=== PATIENT | male | born 1965 | race Caucasian/White ===

== ENCOUNTER 2020-01-29 17:55 | Emergency (ER) | payer OTHER, SELFPAY ==
[2020-01-29 18:08] VITALS: BP 147/93; PULSE 75; RESP 16; TEMP 36.9; O2SAT 100
--- NOTE | 2020-01-29 18:25 | ED.GENADULT ---
HPI - General Adult General Chief complaint: Skin/Abscess/Foreign Body Stated complaint: Rash Time Seen by Provider: 01/29/20 18:25 Source: patient Mode of arrival: ambulatory Limitations: no limitations History of Present Illness HPI narrative: 55-year-old male patient presents to the [facility] with complaints of a rash to bilateral hands and wrists x4 days. Patient states it is itchy. Denies rash anywhere else on the body. Patient denies coming into contact with anything that he is allergic to that he can remember. Patient states that about a month ago his and him were working out in the yard and states that his did get some red bumps all over her after working out in the yard but he states he never got anything except for he is concerned that he might of gotten some from his dog since his dog does walk out around the yard often and he pets the dog often. Patient states he does have normally extremely dry skin. Patient states he has been using calamine lotion which has helped with the itching. Related Data Allergies Allergy/AdvReac Type Severity Reaction Status Date / Time No Known Allergies Allergy Unverified 09/18/18 11:23 Review of Systems Review of Systems: Narrative: CONSTITUTIONAL: Denies fever, chills, or sweats. EYES: Denies visual changes, redness, or discharge. ENT: Denies rhinorrhea, congestion, sore throat, or otalgia. CARDIOVASCULAR: Denies chest pain, palpitations, or edema. RESPIRATORY: Denies cough or dyspnea. GASTROINTESTINAL: Denies abdominal pain, nausea, vomiting, or diarrhea. GENITOURINARY: Denies dysuria or hematuria. SKIN: Positive rash with itching to bilateral wrists and hands. MUSCULOSKELETAL: Denies back pain, joint pain, or myalgia. NEUROLOGIC: Denies headache, numbness, or weakness. PSYCHIATRIC: Denies anxiety or depression. PMFSH Comments At the time of my signature I agree with nursing past medical history, surgical, social, and family history. There is no relevant family history pertinent to the presenting complaint. Exam Narrative: Exam Narrative: GENERAL: Well-appearing, well-nourished, and in no acute distress. HEAD: Normocephalic, atraumatic. EYES: PERRLA and EOMI. ENT: Nares clear, no rhinorrhea or epistaxis. Mucous membranes moist. NECK: Supple. No lymphadenopathy CHEST: Clear to auscultation. No respiratory distress. HEART: Regular rate and rhythm. No murmur heard. Normal peripheral pulses. ABDOMEN: Soft, nontender, nondistended, normal active bowel sounds. EXTREMITIES: Normal range of motion. No edema. SKIN: Warm, dry, patient has what appears to be some very rough dry skin areas on a erythemic base noted to bilateral hands and wrist. They appear to be in clusters of patches. No warmth noted. No open wounds or drainage. NEURO: No focal deficits. Alert and oriented x3. Course Vital Signs Vital signs: Vital Signs Temperature 36.9 C 01/29/20 18:08 Pulse Rate 75 01/29/20 18:08 Respiratory Rate 16 01/29/20 18:08 Blood Pressure 147/93 H 01/29/20 18:08 Pulse Oximetry 100 01/29/20 18:08 Temperature 36.9 C 01/29/20 18:08 Pulse Rate 75 01/29/20 18:08 Respiratory Rate 16 01/29/20 18:08 Blood Pressure 147/93 H 01/29/20 18:08 Pulse Oximetry 100 01/29/20 18:08 Vital signs reviewed. The patient has been informed that they may have pre-hypertension or Hypertension based on a BP reading in the department. I recommend that the patient call the primary care provider listed on their discharge instructions or a physician of their choice this week to arrange follow up for further evaluation of possible pre-hypertension or Hypertension Medical Decision Making Differential Diagnosis Differential Diagnosis: Differential diagnosis: Contact dermatitis, poison jairon, poison sumac, psoriasis, eczema, allergic reaction, drug reaction, scabies, tinea syphilis, lung disease, viral exanthema, pityriasis, erythema multiforme. Discussed with patient that this coul
== END 2020-01-29 18:34 | disposition home or self-care (01) ==
PROVIDERS: Emergency Provider Nurse Practitioner Family
DX: L23.9 Allergic contact dermatitis, unspecified cause (principal)
CPT/HCPCS: 99213; G0463

== ENCOUNTER 2020-07-31 20:17 | Emergency (ER) | payer OTHER, SELFPAY ==
--- NOTE | ~2020-07-31 | XR_ITS ---
XR ribs RT 2V w CXR 2V DATE: 07/31/2020 21:05 INDICATION: Chest wall pain, right rib pain, right shoulder pain TECHNIQUE: PA and lateral chest. 3 views of the right ribs. COMPARISON: None FINDINGS: Normal heart size. No hilar or mediastinal enlargement. No pulmonary infiltrate or consolid ation, pleural effusion or pulmonary vascular congestion or pneumothorax. No right rib fracture is evident. IMPRESSION: Negative Reviewed, dictated and finalized at location A. IMPRESSION: Negative
[2020-07-31 20:21] VITALS: BP 174/94; PULSE 96; RESP 20; TEMP 36.7; O2SAT 99
--- NOTE | 2020-07-31 20:41 | ED.GENADULT ---
HPI - General Adult General Chief complaint: Unspecified Stated complaint: rt rib pain, cant take a deep breath, Time Seen by Provider: 07/31/20 20:39 History of Present Illness HPI narrative: Pain in right chest wall for the past 2 days. Increasing in severity. Mild at baseline. Severe with normal breathing or movements that engage muscles of chest wall. No Trauma, cough, SOB, fever, extremity pain or swelling. Related Data Allergies Allergy/AdvReac Type Severity Reaction Status Date / Time No Known Allergies Allergy Unverified 09/18/18 11:23 Review of Systems Review of Systems: All systems reviewed & are unremarkable except as noted in HPI and below Constitutional: Constitutional: Reports as per HPI Eyes: Eyes: Reports no additional eye complaints ENT: Reports nasal congestion Cardiovascular: Cardiovascular: Reports as per HPI Respiratory: Respiratory: Reports as per HPI Gastrointestinal: Gastrointestinal: Reports no additional gastrointestinal complaints Musculoskeletal: Musculoskeletal: Denies back pain Neurologic: Reports system reviewed and no additional complaints, except as documented PMFSH Social History Social History (Updated 08/01/20 @ 17:50 by Zbigniew Hemphill MD) Smoking status: Never smoker Exam Const: General: healthy appearing, no acute distress, alert and uncomfortable Nutritional Appearance: well nourished Orientation/consciousness: patient oriented x3 HENMT: Head: normal to inspection Neck: Neck: normal visual inspection and no lymphadenopathy Chest: Chest palpation & inspection: normal inspection of the chest and no tenderness Resp: Effort & Inspection: normal respiratory effort Auscultation: clear to auscultation bilaterally, no rales, no rhonchi and no wheezes Other: SHallow breathing. Bracing right side Cardio: Jugular venous distension: no JVD Rate: regular rate Rhythm: regular rhythm Heart sounds: no murmurs GI: Inspection: non-distended GI Palp: Yes Soft to palpation and No Tenderness to palpation present (GI) Skin: General skin exam: normal color Neuro: General: patient oriented x3 and moves all extremities Speech: normal speech Extrem: General: normal to inspection, no calf tenderness and no edema Psych: Appearance: well kempt Affect: normal affect Course Vital Signs Vital signs: Vital Signs Temperature 36.7 C 07/31/20 20:21 Pulse Rate 96 07/31/20 20:21 Respiratory Rate 20 07/31/20 20:21 Blood Pressure 174/94 H 07/31/20 20:21 Pulse Oximetry 99 04/18/21 20:21 Temperature 36.7 C 07/31/20 20:21 Pulse Rate 90 07/31/20 22:02 Respiratory Rate 12 07/31/20 22:02 Blood Pressure 167/70 H 07/31/20 22:02 Pulse Oximetry 99 07/31/20 22:02 Medical Decision Making MDM Narrative Medical decision making narrative: PERC score 0. No indication for further PE evalaution. Rib and chest x-ray negative. Most likely chest wall strain. Cannot rule out pleurisy. Differential Diagnosis Differential Diagnosis: PE, pneumonia, strain, pleurisy, other Vital Signs Vital Signs: Vital Signs Temperature 36.7 C 07/31/20 20:21 Pulse Rate 96 07/31/20 20:21 Respiratory Rate 20 07/31/20 20:21 Blood Pressure 174/94 H 07/31/20 20:21 Pulse Oximetry 99 07/31/20 20:21 Temperature 36.7 C 07/31/20 20:21 Pulse Rate 90 07/31/20 22:02 Respiratory Rate 12 07/31/20 22:02 Blood Pressure 167/70 H 07/31/20 22:02 Pulse Oximetry 99 07/31/20 22:02 Imaging Data Radiologist's impression: ITS Impressions Ribs w/Chest X-Ray 07/31/20 21:20 IMPRESSION: Negative Discharge Plan Discharge Clinical Impression: Acute chest wall pain Patient Disposition: Home, Self-Care Condition: Stable Instructions: Chest Wall Pain (ED) Prescriptions: New tramadol 50 mg tablet 50 mg PO Q6H PRN (Reason: pain) Qty: 10 RF: 0 baclofen 10 mg tablet 10 mg PO QID PRN (Reason: muscle spasm) Qty: 20 RF:
[2020-07-31] MEDS: traMADol HCL (*CRX) 50 MG TABLET PO (21:14)
[2020-07-31] MEDS: BACLOFEN 10 MG TABLET PO (22:00)
[2020-07-31 22:02] VITALS: BP 167/70; PULSE 90; RESP 12; O2SAT 99
== END 2020-07-31 22:04 | disposition home or self-care (01) ==
PROVIDERS: Emergency Provider Emergency Medicine
DX: R07.89 Other chest pain (principal)
CPT/HCPCS: 71046; 71100; 99283; A9270

== ENCOUNTER 2020-08-02 12:30 | Outpatient (CLI) | payer OTHER, SELFPAY ==
--- NOTE | ~2020-08-02 | US_ITS ---
EXAMINATION:US venous doppler LE BI INDICATION:Pulmonary embolism. TECHNIQUE: Multiple grayscale, color flow and Doppler images of the right and left lower extremity de ep venous systems were obtained and reviewed. COMPARISON:No prior studies for comparison. FINDINGS: The common femoral, superficial femoral and popliteal veins demonstrate normal respiratory variation, augmentation and compressibility. Color flow is also seen within the posterior tibial, pe roneal, greater saphenous and profunda veins. IMPRESSION: 1: No lower extremity deep venous thrombosis. Reviewed, dictated and finalized at location A.
--- NOTE | ~2020-08-02 | CT_ITS ---
EXAMINATION: CTA chest PE protocol DATE: 08/02/2020 13:13 INDICATION: Chest pain TECHNIQUE: Computed tomography (CT) pulmonary angiogram of the chest was performed with 100 mL Omnipa que-350 intravenous contrast. Additional 3D reconstructions utilizing coronal maximum intensity proje ction (MIP) were performed. Automated exposure control and iterative reconstruction technique were em ployed. The dose-length product was 829.72 mGy-cm. COMPARISON: None FINDINGS: Good contrast opacification of the pulmonary arteries. There is mild streak artifact from dense contr ast in the superior vena cava and right atrium. Mild scattered respiratory motion artifact which does not significantly limit evaluation. Single pulmonary embolism is identified in the first order subse gmental pulmonary artery of the anterobasilar segment of the right lower lobe with crazy paving patte rn with groundglass opacity and septal line thickening in the midportion of the right lower lobe down stream from the pulmonary embolism consistent with pulmonary infarct. There are bands of linear disco id atelectasis/scarring in the bilateral lower lobes and lingula. Additional atelectasis the medial a spect of the right middle lobe. Small posteriorly layering right pleural effusion. With compensatory compressive atelectasis along the posterior inferior margin of the right lower lobe. Couple small willie cified pulmonary nodules in the bilateral lower lobes and calcified left hilar lymph nodes consistent with old granulomatous disease. Heart size is normal. No leftward bowing of the interventricular sep alexi to suggest right heart strain. No pericardial effusion. Thoracic aorta is normal in caliber with no dissection. No pathologically enlarged thoracic lymphadenopathy. Mild thoracic spondylosis. T6 hem angioma. L1 bone island. IMPRESSION: 1. Pulmonary embolism with low clot burden in a first order subsegmental pulmonary arteries in the an terobasilar segment of the right lower lobe with downstream pulmonary infarct. Dr. Reyna discussed these findings with Dr. Gordon at 1:35 PM. Reviewed, dictated and finalized at location A. IMPRESSION: 1. Pulmonary embolism with low clot burden in a first order subsegmental pulmon clarence arteries in the anterobasilar segment of the right lower lobe with downstre am pulmonary infarct. Dr. Reyna discussed these findings with Dr. Gordon at 1:35 PM.
== END 2020-08-02 12:31 | disposition home or self-care (01) ==
PROVIDERS: PCP Internal Medicine; Visit Provider Internal Medicine
DX: R07.9 Chest pain, unspecified (principal); I26.99 Other pulmonary embolism without acute cor pulmonale
CPT/HCPCS: 71275; 93970; Q9967

== ENCOUNTER 2022-01-08 17:34 | Emergency (ER) | payer OTHER, SELFPAY ==
[2022-01-08 18:16] VITALS: BP 179/94; PULSE 83; RESP 16; TEMP 37.4; O2SAT 100
--- NOTE | 2022-01-08 18:50 | ED.SKABFB ---
HPI - Skin/Abscess/Foreign Bdy General Chief complaint: Skin/Abscess/Foreign Body Stated complaint: Wound on Both Legs Time Seen by Provider: 01/08/22 19:22 Source: patient and RN notes reviewed Mode of arrival: ambulatory Limitations: dementia History of Present Illness HPI narrative: 57-year-old male presents concern for a wound to his left lower leg. Reports he fell off a deck and scraped leg. Reports an open wound. He reports scrapes to his right leg. He reports he is not up-to-date on his tetanus vaccination. MD complaint: laceration and other (Redness) Related Data Home Medications Medication Instructions Recorded Confirmed cetirizine 10 mg tablet (Zyrtec) 10 mg PO DAILY 01/08/22 01/08/22 esomeprazole magnesium 40 mg 40 mg PO DAILY 01/08/22 01/08/22 capsule,delayed release Allergies Allergy/AdvReac Type Severity Reaction Status Date / Time No Known Allergies Allergy Verified 01/08/22 18:43 Review of Systems Review of Systems: GENERAL: Well-appearing, well-nourished, and in no acute distress. HEAD: Normocephalic, atraumatic. EYES: PERRLA, conjunctivae clear, and EOMI. ENT: Mucous membranes moist. Oropharynx without edema, erythema or lesions. NECK: Supple. No lymphadenopathy CHEST: Clear to auscultation. No respiratory distress. HEART: Regular rate and rhythm. SKIN: Warm, dry. 4 cm linear laceration through the subcutaneous tissue noted to the anterior left lower leg, gaping. Superficial abrasions noted to the right lower leg and left lower leg. NEURO: Alert and oriented x3. PSYCH: Normal mood and affect All systems reviewed & are unremarkable except as noted in HPI and below [facility] Social History Social History (Updated 08/01/20 @ 17:50 by Zbigniew Hemphill MD) Smoking status: Never smoker Comments At time of signature, agree with nursing past medical, surgical, social and family history. There is no relevant family history pertinent to the presenting complaint Exam Narrative: GENERAL: Well-appearing, well-nourished, and in no acute distress. HEAD: Normocephalic, atraumatic. EYES: PERRLA, conjunctivae clear ENT: Mucous membranes moist. NECK: Supple. No lymphadenopathy CHEST: Clear to auscultation. No respiratory distress. HEART: Regular rate and rhythm. SKIN: Warm, dry. Erythema, induration, tenderness, warmth with sharp margins noted (xx). No vesicles, bullae, necrosis, ecchymosis, crepitus noted. NEURO: Alert and oriented x3. PSYCH: Normal mood and affect Course Course Emergency Course: Patient is aware of diagnosis, understands and agrees to treatment plan. Anticipatory guidance given. Patient agrees to follow-up as directed and is aware of reasons to seek care at the emergency department. Portions of this record may have been created with voice recognition software Level of Care: Express Care Visit Vital Signs Vital signs: Vital Signs Temperature 99.4 F 01/08/22 18:16 Pulse Rate 83 01/08/22 18:16 Respiratory Rate 16 01/08/22 18:16 Blood Pressure 179/94 H 01/08/22 18:16 Pulse Oximetry 100 01/08/22 18:16 Oxygen Delivery Room Air 01/08/22 18:16 Temperature 99.4 F 01/08/22 18:16 Pulse Rate 83 01/08/22 18:16 Respiratory Rate 16 01/08/22 18:16 Blood Pressure 179/94 H 01/08/22 18:16 Pulse Oximetry 100 01/08/22 18:16 Oxygen Delivery Room Air 01/08/22 18:16 Reviewed. Procedures Laceration Laceration 1: Date: 01/08/22 Time: 19:26 Side (If applicable): left Size (cm): 4 Description: linear Depth: simple, single layer (Through the subcutaneous tissue) Local Anesthetic: lidocaine 1% Amount of anesthesia used (mL): 4 ====== Skin Level ====== Skin layer closed with: nylon Size (cm): 4-0 Number of sutures: 7 Technique: simple, interrupted ====== Subcutaneous Layer ====== ====== Muscle Layer ====== ====== Tendon Layer ====== MDM
[2022-01-08] MEDS: TETANUS,DIPHTHERIA,AC PERTUSSIS ADULT (0.5 ML) BOOSTRIX IM (19:14)
== END 2022-01-08 20:32 | disposition home or self-care (01) ==
PROVIDERS: Emergency Provider Nurse Practitioner; PCP Internal Medicine
DX: S81.812A Laceration without foreign body, left lower leg, initial encounter (principal); W17.89XA Other fall from one level to another, initial encounter; Z23 Encounter for immunization; K21.9 Gastro-esophageal reflux disease without esophagitis; Z86.711 Personal history of pulmonary embolism; Z86.16 Personal history of COVID-19
CPT/HCPCS: 12002; 90471; 90715; 99213; G0463